=== PATIENT | male | born 1970 | race Caucasian/White ===

== ENCOUNTER 2017-05-01 14:14 | Emergency (ER) | payer SELFPAY ==
[~2017-05-01] VITALS: Ht 170.2 cm; Wt 104.5 kg
[~2017-05-01 14:14] MED LIST: ULTRAM 50MG TAB50 MG PO; ZOFRAN ODT4 MG PO; ZOFRAN8 MG PO
[2017-05-01 14:22] VITALS: TEMP 98.9
[2017-05-01 16:34] VITALS: BP 110/66; PULSE 58
== END 2017-05-01 16:35 | disposition home or self-care (01) ==
LOC: COL.ER 14:14
DX: R51 Headache (principal)
CPT/HCPCS: J1200; J1885; J2765; J7030

== ENCOUNTER 2017-10-31 18:55 | Emergency (ER) | payer BC ==
[~2017-10-31] VITALS: Ht 175.3 cm; Wt 104.5 kg
[2017-10-31 19:01] VITALS: TEMP 98.9
[2017-10-31] MEDS ORDERED: SIMPONI50 MG/0.5 SQ (19:08)
[2017-10-31] MEDS ORDERED: BENADRYL25 M2 PO (19:08)
[2017-10-31] MEDS ORDERED: PREDNISONE 5MG5 MG PO (19:09)
[2017-10-31] MEDS ORDERED: ULTRAM 50MG TAB50 MG PO (19:09)
[2017-10-31 19:37] LABS: BASO % 0.3 % (0.0-2.0); EOS % 0.3 % (0-4.0); GRAN # 8.2 (1.4-6.5); GRAN % 78.3 % (42.2-75.2); HEMATOCRIT 46.3 % (42.0-52.0); HEMOGLOBIN 16.1 g/dl (13.5-18.0); LYMPH # 1.5 (1.2-3.4); LYMPH % 14.7 % (20.0-51.0); MEAN CELL VOLUME 91 fl (80.0-100.0); MEAN CORPUSCULAR HEMOGLOBIN 32 pg (27.0-31.0); MEAN CORPUSCULAR HGB CONC 35 g/dl (33.0-37.0); MEAN PLATELET VOLUME 9.7 fl (7.4-10.4); MONO # 0.6 (0.1-0.6); MONO % 5.9 % (1.7-9.3); PLATELET COUNT 222 K/mm3 (130-400); RED BLOOD COUNT 5.11 M/mm3 (4.20-5.60); REDCELL DISTRIBUTION WIDTH-CV 13.4 % (11.5-14.5)
[2017-10-31 19:48] LABS: ALBUMIN 4.8 gm/dL (3.5-5.0); BILIRUBIN,TOTAL 0.8 mg/dL (0.0-1.0); C-REACTIVE PROTEIN 0.6 mg/dL (0.0-0.9); CALCIUM 9.7 mg/dL (8.4-10.2); CREATININE, serum 0.89 mg/dL (0.66-1.25); POTASSIUM 3.2 mmol/L (3.4-5.0); TOTAL PROTEIN 7.8 gm/dL (6.4-8.2)
[2017-10-31 19:59] LABS: ERYTHROCYTE SEDIMENTATION RATE 1 mm/hr (0-15)
[2017-10-31 20:59] LABS: COLLECTION METHOD CLEAN CATCH
[2017-10-31 21:05] LABS: MUCOUS Present /lpf; PH 5 (5-8); SQUAMOUS EPITHELIAL None Seen /hpf; URINE APPEARANCE Hazy; URINE BACTERIA Rare /hpf; URINE BILIRUBIN Negative (NEGATIVE); URINE BLOOD Negative (NEGATIVE); URINE COLOR Yellow; URINE GLUCOSE Negative (NEGATIVE); URINE KETONE Negative (NEGATIVE); URINE LEUKOCYTE ESTERASE Negative (NEGATIVE); URINE NITRATE Negative (NEGATIVE); URINE PROTEIN(semi-quant) Negative (NEGATIVE); URINE RBC 0-2 /hpf; URINE UROBILINOGEN Negative (NEGATIVE)
[2017-10-31 21:13] VITALS: BP 131/81; PULSE 72
== END 2017-10-31 21:31 | disposition home or self-care (01) ==
LOC: COL.ER 18:55
PROVIDERS: Emergency Medicine
DX: G43.909 Migraine, unspecified, not intractable, without status migrainosus (principal); M06.9 Rheumatoid arthritis, unspecified
CPT/HCPCS: J1200; J1885; J2550; J7030

== ENCOUNTER 2019-06-09 03:48 | Emergency (ER) | payer BC ==
[~2019-06-09] VITALS: Ht 175.3 cm; Wt 102.3 kg
[~2019-06-09 03:48] MED LIST changes: +BENADRYL25 M2 PO; +PREDNISONE 5MG5 MG PO; +SIMPONI50 MG/0.5 SQ
[2019-06-09 03:49] VITALS: TEMP 96.9
[2019-06-09] MEDS ORDERED: MELATONIN1 MG (03:53)
[2019-06-09 04:11] LABS: BASO % 0.3 % (0.0-2.0); EOS # 0.2 (0.0-0.7); EOS % 2.3 % (0-4.0); GRAN # 5.8 (1.4-6.5); GRAN % 63.3 % (42.2-75.2); HEMATOCRIT 46.9 % (42.0-52.0); HEMOGLOBIN 15.6 g/dl (13.5-18.0); LYMPH # 2.2 (1.2-3.4); LYMPH % 24.1 % (20.0-51.0); MEAN CELL VOLUME 93 fl (80.0-100.0); MEAN CORPUSCULAR HEMOGLOBIN 31 pg (27.0-31.0); MEAN CORPUSCULAR HGB CONC 33 g/dl (33.0-37.0); MEAN PLATELET VOLUME 9.5 fl (7.4-10.4); MONO # 0.9 (0.1-0.6); MONO % 9.6 % (1.7-9.3); PLATELET COUNT 237 K/mm3 (130-400); RED BLOOD COUNT 5.04 M/mm3 (4.20-5.60); REDCELL DISTRIBUTION WIDTH-CV 13.4 % (11.5-14.5)
[2019-06-09 04:15] LABS: PROTHROMBIN TIME 11.5 SECONDS (9.7-12.8)
[2019-06-09 04:18] LABS: ALANINE AMINOTRANSFERASE 59 U/L (21-72); ALBUMIN 4.4 gm/dL (3.5-5.0); ALKALINE PHOSPHATASE 82 U/L (50-136); ANION GAP 9 mmol/L (7-16); AST,SGOT 44 U/L (15-37); BILIRUBIN,TOTAL 0.8 mg/dL (0.0-1.0); BLOOD UREA NITROGEN 13 mg/dL (9-20); CALCIUM 9.1 mg/dL (8.4-10.2); CARBON DIOXIDE 28 mmol/L (22-30); CHLORIDE 104 mmol/L (98-107); CREATININE, serum 0.95 (0.66-1.25); GLUCOSE 123 mg/dL (74-106); SODIUM 141 mmol/L (137-145); TOTAL PROTEIN 7.3 gm/dL (6.4-8.2)
[2019-06-09 04:31] LABS: TROPONIN-I < 0.012 ng/mL (0.000-0.035)
[2019-06-09] MEDS ORDERED: ATIVAN 1MG T1 MG/TAB PO (06:36)
[2019-06-09 07:15] VITALS: BP 111/74; PULSE 58
== END 2019-06-09 07:15 | disposition home or self-care (01) ==
LOC: COL.ER 03:48
PROVIDERS: Emergency Medicine
DX: R55 Syncope and collapse (principal); F41.9 Anxiety disorder, unspecified; R42 Dizziness and giddiness
CPT/HCPCS: J2405; J7030

== ENCOUNTER 2019-09-24 16:13 | Emergency (ER) | payer BC ==
[~2019-09-24] VITALS: Ht 177.8 cm; Wt 104.5 kg
[~2019-09-24 16:13] MED LIST changes: +ATIVAN 1MG T1 MG/TAB PO; +MELATONIN1 MG
[2019-09-24 16:42] LABS: COLLECTION METHOD CLEAN CATCH
[2019-09-24 16:46] LABS: BASO % 0.3 % (0.0-2.0); GRAN # 8.3 (1.4-6.5); GRAN % 80.4 % (42.2-75.2); HEMATOCRIT 47.5 % (42.0-52.0); HEMOGLOBIN 16.2 g/dl (13.5-18.0); LYMPH # 0.8 (1.2-3.4); LYMPH % 7.8 % (20.0-51.0); MEAN CELL VOLUME 94 fl (80.0-100.0); MEAN CORPUSCULAR HEMOGLOBIN 32 pg (27.0-31.0); MEAN CORPUSCULAR HGB CONC 34 g/dl (33.0-37.0); MEAN PLATELET VOLUME 9.7 fl (7.4-10.4); MONO # 1.2 (0.1-0.6); MONO % 11.1 % (1.7-9.3); PLATELET COUNT 248 K/mm3 (130-400); RED BLOOD COUNT 5.08 M/mm3 (4.20-5.60); REDCELL DISTRIBUTION WIDTH-CV 13.5 % (11.5-14.5)
[2019-09-24 16:49] LABS: PH 7 (5-8); SQUAMOUS EPITHELIAL None Seen /hpf; URINE APPEARANCE Clear; URINE BACTERIA None Seen /hpf; URINE BILIRUBIN Negative (NEGATIVE); URINE BLOOD 1+ (NEGATIVE); URINE COLOR Straw; URINE GLUCOSE Negative (NEGATIVE); URINE KETONE Negative (NEGATIVE); URINE LEUKOCYTE ESTERASE Negative (NEGATIVE); URINE NITRATE Negative (NEGATIVE); URINE PROTEIN(semi-quant) Negative (NEGATIVE); URINE RBC None Seen /hpf; URINE UROBILINOGEN Negative (NEGATIVE)
[2019-09-24 17:00] LABS: ALBUMIN 5.3 gm/dL (3.5-5.0); BILIRUBIN,TOTAL 1.1 mg/dL (0.0-1.0); CALCIUM 10.2 mg/dL (8.4-10.2); CREATININE, serum 0.93 (0.66-1.25); POTASSIUM 3.7 mmol/L (3.4-5.0); TOTAL PROTEIN 8.7 gm/dL (6.4-8.2)
[2019-09-24] MEDS ORDERED: PHENERGAN 25 TA25 MG PO (20:53)
[2019-09-24 21:15] VITALS: BP 155/118; PULSE 98; TEMP 102.1
== END 2019-09-24 21:54 | disposition home or self-care (01) ==
LOC: COL.ER 16:13
PROVIDERS: Emergency Medicine
DX: R50.9 Fever, unspecified (principal); R30.0 Dysuria; D84.9 Immunodeficiency, unspecified; M06.9 Rheumatoid arthritis, unspecified
CPT/HCPCS: J0696; J7030; Q9967

== ENCOUNTER 2019-09-26 23:09 | Inpatient (IN) | payer BC ==
[~2019-09-26] VITALS: Ht 177.8 cm; Wt 104.5 kg
[~2019-09-26 23:09] MED LIST changes: +PHENERGAN 25 TA25 MG PO
[2019-09-26 23:44] LABS: BASO % 0.2 % (0.0-2.0); GRAN # 4.8 (1.4-6.5); HEMATOCRIT 43.9 % (42.0-52.0); HEMOGLOBIN 15.2 g/dl (13.5-18.0); LYMPH # 0.8 (1.2-3.4); LYMPH % 12.2 % (20.0-51.0); MEAN CELL VOLUME 91 fl (80.0-100.0); MEAN CORPUSCULAR HEMOGLOBIN 32 pg (27.0-31.0); MEAN CORPUSCULAR HGB CONC 35 g/dl (33.0-37.0); MEAN PLATELET VOLUME 10.1 fl (7.4-10.4); MONO # 0.7 (0.1-0.6); MONO % 11.1 % (1.7-9.3); PLATELET COUNT 192 K/mm3 (130-400); RED BLOOD COUNT 4.82 M/mm3 (4.20-5.60); REDCELL DISTRIBUTION WIDTH-CV 13.5 % (11.5-14.5)
[2019-09-26 23:52] LABS: ALBUMIN 4.8 gm/dL (3.5-5.0); C-REACTIVE PROTEIN 3.1 mg/dL (0.0-0.9); CALCIUM 9.9 mg/dL (8.4-10.2); CREATININE, serum 0.97 (0.66-1.25); POTASSIUM 3.7 mmol/L (3.4-5.0); TOTAL PROTEIN 8.2 gm/dL (6.4-8.2)
[2019-09-27] VITALS (9 sets, daily range): BP systolic 98–130; BP diastolic 62–70; PULSE 53–82; TEMP 98.2–101.1
[2019-09-27 00:14] LABS: COLLECTION METHOD CLEAN CATCH
[2019-09-27 00:20] LABS: PH 6 (5-8); SQUAMOUS EPITHELIAL None Seen /hpf; URINE APPEARANCE Clear; URINE BACTERIA Rare /hpf; URINE BILIRUBIN Negative (NEGATIVE); URINE BLOOD Negative (NEGATIVE); URINE COLOR Yellow; URINE GLUCOSE Negative (NEGATIVE); URINE KETONE Negative (NEGATIVE); URINE LEUKOCYTE ESTERASE Negative (NEGATIVE); URINE NITRATE Negative (NEGATIVE); URINE PROTEIN(semi-quant) Negative (NEGATIVE); URINE RBC 0-2 /hpf; URINE UROBILINOGEN Negative (NEGATIVE)
[2019-09-27 01:16] LABS: CLOSTRIDIUM DIFF A/B NEG; CLOSTRIDIUM DIFF A/B INTERP No C.diff present
--- NOTE | 2019-09-27 02:15 | NUR ---
Received patient from ER via stretcher. Patient is alert and oriented. He is independent. With IV at right AC. Metronidazone currently infusing. Patient states he feels some bloatedness but it was tolerable. Med rec and assessment done. Lungs are clear. Will inform Dr. Levy about patient's admission.
[2019-09-27] MEDS ORDERED: PREDNISONE 5MG5 MG PO (02:32)
[2019-09-27] MEDS ORDERED: CIPRO 500MG TA500 MG PO (02:33)
[2019-09-27] MEDS ORDERED: RINVOQ ER15 MG PO (02:35)
--- NOTE | 2019-09-27 02:54 | NUR ---
Called Dr. Levy that patient is already admitted. He ordered for NPO and fluids. Swabbed patient for covid.
--- NOTE | 2019-09-27 06:13 | NUR ---
Patient had an uneventful night. He is afebrile. Maintained on NPO. He didn't have any diarrhea since he came up in the room. Will endorse to day shift nurse.
[2019-09-27 10:25] LABS: BASO % 0.4 % (0.0-2.0); GRAN # 2.8 (1.4-6.5); GRAN % 59.8 % (42.2-75.2); HEMATOCRIT 44.6 % (42.0-52.0); HEMOGLOBIN 15.6 g/dl (13.5-18.0); LYMPH # 1.2 (1.2-3.4); LYMPH % 26.1 % (20.0-51.0); MEAN CELL VOLUME 92 fl (80.0-100.0); MEAN CORPUSCULAR HEMOGLOBIN 32 pg (27.0-31.0); MEAN CORPUSCULAR HGB CONC 35 g/dl (33.0-37.0); MEAN PLATELET VOLUME 10.1 fl (7.4-10.4); MONO # 0.6 (0.1-0.6); MONO % 12.4 % (1.7-9.3); PLATELET COUNT 150 K/mm3 (130-400); RED BLOOD COUNT 4.84 M/mm3 (4.20-5.60); REDCELL DISTRIBUTION WIDTH-CV 13.7 % (11.5-14.5)
[2019-09-27 10:30] LABS: CALCIUM 9.3 mg/dL (8.4-10.2); CREATININE, serum 0.88 (0.66-1.25); POTASSIUM 4.4 mmol/L (3.4-5.0)
--- NOTE | 2019-09-27 11:20 | NUR ---
Patient is alert and oriented. complained of abdominal pain. No diarrhea since yesterday at 1am.
--- NOTE | 2019-09-27 11:56 | NUR ---
patient covid19 result came back negative. patient moved from room 4 to 8.
--- NOTE | 2019-09-27 13:23 | NUR ---
SHREE met with the patient to complete initial intake. The patient lives in [place] with his , Melba and their adult son. The patient denies DME use and is independent with ADLs. The patient's PCP is Dr. Cullen and patient receives medications from [facility] with no difficulties. The patient does not have advanced directives in the EMR but was interested in a DPOA-HC form. Form provided. The patient plans to return home at discharge. There are no additional needs at this time.
--- NOTE | 2019-09-27 19:30 | NUR ---
Received report from [facility]. Seen patient sitting on the bedside. He just finished eating his dinner. He asked to check his temperature again and it was 98.4 Denies any pain. Tried calling Dr. Ahmadi twice but no answer. Left a message in the voicemail.
--- NOTE | 2019-09-27 21:10 | NUR ---
Patient states tat few minutes ago he was able to have a bowel movement and it's already soft and formed. Patient is afebrile. Denies pain.
[2019-09-28] VITALS (7 sets, daily range): BP systolic 113–128; BP diastolic 63–89; PULSE 56–86; TEMP 98.7–100.4
--- NOTE | 2019-09-28 04:20 | NUR ---
Patient states he feels like he has a fever. Temp was checked and it was 99.3F. He verbalizes that he has left ear pain. He said that he already felt the same pain before and he would just go to the doctor and he will be given ear drops. He states it's just a mild pain with pain score of 1/10. No other associated symptoms.
--- NOTE | 2019-09-28 06:30 | NUR ---
Patient had one episode of low grade fever. Tylenol was given for that. Latest temp is 99.6F. Will endorse to day shift nurse.
[2019-09-28 07:03] LABS: BASO % 0.2 % (0.0-2.0); GRAN # 2.8 (1.4-6.5); GRAN % 67.6 % (42.2-75.2); HEMATOCRIT 40.9 % (42.0-52.0); HEMOGLOBIN 13.9 g/dl (13.5-18.0); LYMPH # 0.9 (1.2-3.4); LYMPH % 21.2 % (20.0-51.0); MEAN CELL VOLUME 95 fl (80.0-100.0); MEAN CORPUSCULAR HEMOGLOBIN 32 pg (27.0-31.0); MEAN CORPUSCULAR HGB CONC 34 g/dl (33.0-37.0); MEAN PLATELET VOLUME 10.6 fl (7.4-10.4); MONO # 0.4 (0.1-0.6); MONO % 10.5 % (1.7-9.3); PLATELET COUNT 141 K/mm3 (130-400); RED BLOOD COUNT 4.33 M/mm3 (4.20-5.60); REDCELL DISTRIBUTION WIDTH-CV 13.5 % (11.5-14.5)
[2019-09-28 07:06] LABS: ALBUMIN 4.1 gm/dL (3.5-5.0); BILIRUBIN,TOTAL 0.9 mg/dL (0.0-1.0); CALCIUM 8.6 mg/dL (8.4-10.2); CREATININE, serum 0.84 (0.66-1.25); POTASSIUM 3.9 mmol/L (3.4-5.0); TOTAL PROTEIN 7.2 gm/dL (6.4-8.2)
--- NOTE | 2019-09-28 09:33 | NUR ---
Pt napping upon entry, easily awakened, no C/O pain at this time, shift assessments complete, left Pt call light in reach, bed in lowest position.
--- NOTE | 2019-09-28 18:26 | NUR ---
Pt resting in the room, no C/O pain throughout the day, VS have remained stable.
--- NOTE | 2019-09-28 20:00 | NUR ---
At time of assessment, patient is alert and oriented. He states he has not had diarrhea today, just soft stool. He does complain of having an upset and rumbly stomach at this time. Heart sounds are normal/regular, lungs are clear, no edema or pain. Will contiue to monitor.
[2019-09-29] VITALS (8 sets, daily range): BP systolic 112–133; BP diastolic 54–76; PULSE 50–65; TEMP 97.6–99
--- NOTE | 2019-09-29 06:13 | NUR ---
Patient has had a restful night with no complaints. Max temp tonight was 99.8. Will continue to monitor.
[2019-09-29 06:50] LABS: HEMOGLOBIN 13.6 g/dl (13.5-18.0); MEAN CELL VOLUME 94 fl (80.0-100.0); MEAN CORPUSCULAR HEMOGLOBIN 32 pg (27.0-31.0); MEAN CORPUSCULAR HGB CONC 34 g/dl (33.0-37.0); MEAN PLATELET VOLUME 10.1 fl (7.4-10.4); PLATELET COUNT 151 K/mm3 (130-400); RED BLOOD COUNT 4.27 M/mm3 (4.20-5.60); REDCELL DISTRIBUTION WIDTH-CV 13.6 % (11.5-14.5)
[2019-09-29 07:03] LABS: BILIRUBIN,TOTAL 0.6 mg/dL (0.0-1.0); CALCIUM 8.7 mg/dL (8.4-10.2); CREATININE, serum 0.85 (0.66-1.25); POTASSIUM 3.7 mmol/L (3.4-5.0)
[2019-09-29 07:32] LABS: BAND 20 % (0-10); LYMPHOCYTE 33 % (20.0-51.0); NEUTROPHILS 33 % (42.0-75.2)
[2019-09-29 07:33] LABS: PLATELET ESTIMATE NORMAL (NORMAL)
--- NOTE | 2019-09-29 09:16 | NUR ---
Pt awake and alert upon entry, sitting at window no C/O pain at this time, shift assessments complete, left Pt call light in reach.
--- NOTE | 2019-09-29 15:47 | NUR ---
SW met with the patient to revisit the discharge plan. The patient has not concerns or question about going home. There are no additional needs at this time.
--- NOTE | 2019-09-29 18:21 | NUR ---
Pt has been resting in the room today, ambulatory and independent. Pt has had no C/O pain today. VS have remained stable.
--- NOTE | 2019-09-29 19:30 | NUR ---
Received report from Nick. Seen patient awake, lying in bed. Denies any pain. Afebrile. He states he feels better now and no episodes of diarrhea. With INT on right AC. Patient verbalizes he might go home tomorrow. Will continue to monitor temperature.
[2019-09-30 04:10] VITALS: BP 109/67; PULSE 53; TEMP 98.4
--- NOTE | 2019-09-30 06:09 | NUR ---
Patient had an uneventful night. He is afebrile. Denies any pain. Will endorse to day shift nurse.
[2019-09-30 07:36] LABS: HEMATOCRIT 39.3 % (42.0-52.0); HEMOGLOBIN 13.2 g/dl (13.5-18.0); MEAN CELL VOLUME 94 fl (80.0-100.0); MEAN CORPUSCULAR HEMOGLOBIN 32 pg (27.0-31.0); MEAN CORPUSCULAR HGB CONC 34 g/dl (33.0-37.0); MEAN PLATELET VOLUME 10.1 fl (7.4-10.4); PLATELET COUNT 156 K/mm3 (130-400); RED BLOOD COUNT 4.17 M/mm3 (4.20-5.60); REDCELL DISTRIBUTION WIDTH-CV 13.3 % (11.5-14.5)
[2019-09-30 08:00] LABS: ALBUMIN 3.8 gm/dL (3.5-5.0); BILIRUBIN,TOTAL 0.7 mg/dL (0.0-1.0); CALCIUM 8.9 mg/dL (8.4-10.2); CREATININE, serum 0.76 (0.66-1.25); TOTAL PROTEIN 6.7 gm/dL (6.4-8.2)
[2019-09-30 08:45] VITALS: BP 113/74; PULSE 62; TEMP 98.1
[2019-09-30 09:11] LABS: BAND 14 % (0-10); EOSINOPHIL 1 % (0-4); LYMPHOCYTE 36 % (20.0-51.0); NEUTROPHILS 42 % (42.0-75.2)
[2019-09-30 09:12] LABS: PLATELET ESTIMATE NORMAL (NORMAL)
--- NOTE | 2019-09-30 09:33 | NUR ---
Pt awake and alert upon entry, sitting at window bench, no C/O pain at this time, shift assessments complete, left Pt call light in reach
--- NOTE | 2019-09-30 12:45 | NUR ---
Pt discharged to home, discussed discharge packet with Pt, anwered all questions. Escorted Pt to entrance, Pt left with spouse via private transportation.
== END 2019-09-30 12:45 | disposition home or self-care (01) | DRG 872 ==
LOC: COL.ER 23:09 → MEDICAL 09-27 00:30 → PEDS 09-27 01:22 → MEDICAL 09-27 10:56
PROVIDERS: Physician Assistant; ADMIT Student in an Organized Health Care Education/Training Program
DX: A41.9 Sepsis, unspecified organism (principal); E87.1 Hypo-osmolality and hyponatremia; K52.1 Toxic gastroenteritis and colitis; M06.9 Rheumatoid arthritis, unspecified; J45.909 Unspecified asthma, uncomplicated; T36.95XA Adverse effect of unspecified systemic antibiotic, initial encounter; Z20.828 Contact with and (suspected) exposure to other viral communicable diseases
CPT/HCPCS: OP; 99232-AI; 99233-AI; 99239; J0696; J1650; J2405; J7030; J7512; Q9967

== ENCOUNTER → 2019-10-10 | Outpatient (CLI) | payer BC ==
[~2019-10-10] MED LIST changes: +CIPRO 500MG TA500 MG PO; +RINVOQ ER15 MG PO
== END ==
LOC: COL.RAD 07:58
DX: K80.20 Calculus of gallbladder without cholecystitis without obstruction (principal); K76.0 Fatty (change of) liver, not elsewhere classified

== ENCOUNTER → 2020-05-13 | Outpatient (CLI) | payer BC | LOC: COL.RAD 08:08 | DX: K76.0 Fatty (change of) liver, not elsewhere classified (principal) ==

== ENCOUNTER 2020-06-21 07:03 | Day surgery (SDC) | payer BC ==
[~2020-06-21] VITALS: Ht 177.8 cm; Wt 103.6 kg
[2020-06-21 07:46] VITALS: BP 140/90; PULSE 84; TEMP 97.9
[2020-06-21] MEDS ORDERED: MELATONIN5 M1 PO (07:54)
[2020-06-21] MEDS ORDERED: ORENCIA CL125 MG/1 M SQ (07:54)
[2020-06-21] MEDS ORDERED: VITAMIND3 5000 PO (07:55)
[2020-06-21] MEDS ORDERED: NATURAL MAGNES200 MG PO (07:56)
[2020-06-21] MEDS ORDERED: PHARMASSURE ZIN50 MG PO (07:56)
[2020-06-21] MEDS ORDERED: PREDNISONE 5MG5 MG PO (07:57)
[2020-06-21 09:00] VITALS: BP 121/84; PULSE 73; TEMP 98.6
--- NOTE | 2020-06-21 09:00 | NUR ---
Patient arrives back to [facility] alert, denies pain or nausea. Patient ambulated from cart to chair with standby assist and without any complications. Patient monitor applied, vitals stable.
--- NOTE | 2020-06-21 09:10 | NUR ---
Patient given coffee, juice and muffin at this time.
[2020-06-21 09:15] VITALS: BP 137/96; PULSE 81
[2020-06-21 09:30] VITALS: BP 113/81; PULSE 73
--- NOTE | 2020-06-21 09:30 | NUR ---
Patient tolerated food and drink without any nausea. Vitals stable.
--- NOTE | 2020-06-21 09:50 | NUR ---
Dismissal instructions gone over with patient. Patient voices understanding and all questions answered.
--- NOTE | 2020-06-21 10:00 | NUR ---
Patient discharged to private vehicle at patient enterance via wheelchair. Patient leaves thanking staff for services.
[2020-07-03] MEDS ORDERED: ULTRAM 50MG TAB50 MG PO (13:12)
[2020-07-03] MEDS ORDERED: TYLENOL 8 HR PO (13:13)
[2020-07-03] MEDS ORDERED: VIT PO (13:17)
[2020-07-05] MEDS ORDERED: B-121000 MCG PO (06:46)
== END 2020-06-21 10:00 | disposition home or self-care (01) ==
LOC: SDCO 07:03
DX: Z12.11 Encounter for screening for malignant neoplasm of colon (principal); K64.0 First degree hemorrhoids; K57.30 Diverticulosis of large intestine without perforation or abscess without bleeding; K21.9 Gastro-esophageal reflux disease without esophagitis; K59.00 Constipation, unspecified; M19.90 Unspecified osteoarthritis, unspecified site; J45.909 Unspecified asthma, uncomplicated; K76.0 Fatty (change of) liver, not elsewhere classified; M06.9 Rheumatoid arthritis, unspecified; Z79.899 Other long term (current) drug therapy; Z20.822 Contact with and (suspected) exposure to COVID-19
CPT/HCPCS: J2704; J3010

== ENCOUNTER → 2020-07-05 | Outpatient (CLI) | payer BC ==
[~2020-07-05] VITALS: Ht 177.8 cm; Wt 104.0 kg
[2020-07-05] VITALS (8 sets, daily range): BP systolic 134–162; BP diastolic 87–100; PULSE 48–59
[~2020-07-05] MED LIST changes: +B-121000 MCG PO; +MELATONIN5 M1 PO; +NATURAL MAGNES200 MG PO; +ORENCIA CL125 MG/1 M SQ; +PHARMASSURE ZIN50 MG PO; +TYLENOL 8 HR PO; +VIT PO; +VITAMIND3 5000 PO
--- NOTE | 2020-07-05 07:55 | NUR ---
Dr De La Cruz here, time out done and procedure started
--- NOTE | 2020-07-05 08:05 | NUR ---
specimans obtained from liver put in formulin, bandaid over site
== END ==
LOC: COL.RAD 05:48
PROVIDERS: Internal Medicine Gastroenterology
DX: Z98.890 Other specified postprocedural states (principal); R74.8 Abnormal levels of other serum enzymes
CPT/HCPCS: 32109

== ENCOUNTER 2020-10-31 14:47 | Emergency (ER) | payer BC ==
[~2020-10-31] VITALS: Ht 177.8 cm; Wt 102.3 kg
[2020-10-31 15:34] VITALS: TEMP 99
[2020-10-31 18:21] LABS: ALANINE AMINOTRANSFERASE 112 U/L (4-49); ALBUMIN 4.7 gm/dL (3.5-5.0); ALKALINE PHOSPHATASE 106 U/L (50-136); ANION GAP 7 mmol/L (7-16); AST,SGOT 111 U/L (15-37); BILIRUBIN,TOTAL 0.5 mg/dL (0.0-1.0); BLOOD UREA NITROGEN 8 mg/dL (9-20); CALCIUM 9.6 mg/dL (8.4-10.2); CARBON DIOXIDE 25 mmol/L (22-30); CHLORIDE 108 mmol/L (98-107); GLUCOSE 96 mg/dL (74-106); SODIUM 140 mmol/L (137-145); TOTAL PROTEIN 7.7 gm/dL (6.4-8.2)
[2020-10-31 18:23] LABS: BASO % 0.2 % (0.0-2.0); EOS % 0.2 % (0-4.0); GRAN # 4.2 (1.4-6.5); GRAN % 70.7 % (42.2-75.2); HEMATOCRIT 48.3 % (42.0-52.0); HEMOGLOBIN 16.4 g/dl (13.5-18.0); LYMPH % 16.9 % (20.0-51.0); MEAN CELL VOLUME 88 fl (80.0-100.0); MEAN CORPUSCULAR HEMOGLOBIN 30 pg (27.0-31.0); MEAN CORPUSCULAR HGB CONC 34 g/dl (33.0-37.0); MEAN PLATELET VOLUME 9.8 fl (7.4-10.4); MONO # 0.7 (0.1-0.6); MONO % 11.7 % (1.7-9.3); PLATELET COUNT 213 K/mm3 (130-400); RED BLOOD COUNT 5.47 M/mm3 (4.20-5.60); REDCELL DISTRIBUTION WIDTH-CV 13.7 % (11.5-14.5)
[2020-10-31 18:33] LABS: TROPONIN-I < 0.012 ng/mL (0.000-0.035)
[2020-10-31 21:00] VITALS: BP 135/88; PULSE 89
== END 2020-10-31 21:00 | disposition home or self-care (01) ==
LOC: COL.ER 14:47
PROVIDERS: Physician Assistant
DX: U07.1 COVID-19 (principal); M19.91 Primary osteoarthritis, unspecified site; Z79.52 Long term (current) use of systemic steroids
CPT/HCPCS: J7030

== ENCOUNTER → 2021-03-18 | Outpatient (CLI) | payer BC | LOC: COL.RAD 07:46 | DX: K76.0 Fatty (change of) liver, not elsewhere classified (principal); K80.20 Calculus of gallbladder without cholecystitis without obstruction ==

== ENCOUNTER 2022-06-15 07:47 | Emergency (ER) | payer BC ==
[~2022-06-15] VITALS: Ht 175.3 cm; Wt 100.0 kg
[2022-06-15 08:07] LABS: BASO % 0.7 % (0.0-2.0); EOS # 0.2 K/mm3 (0.0-0.7); GRAN # 3.5 K/mm3 (1.4-6.5); HEMATOCRIT 47.2 % (42.0-52.0); HEMOGLOBIN 16.5 g/dl (13.5-18.0); LYMPH # 1.8 K/mm3 (1.2-3.4); LYMPH % 29.7 % (20.0-51.0); MEAN CELL VOLUME 90 fl (80.0-100.0); MEAN CORPUSCULAR HEMOGLOBIN 31 pg (27-31); MEAN CORPUSCULAR HGB CONC 35 g/dl (33.0-37.0); MEAN PLATELET VOLUME 9.8 fl (7.4-10.4); MONO # 0.4 K/mm3 (0.1-0.6); MONO % 7.4 % (1.7-9.3); PLATELET COUNT 240 K/mm3 (130-400); RED BLOOD COUNT 5.27 M/mm3 (4.20-5.60); REDCELL DISTRIBUTION WIDTH-CV 13.3 % (11.5-14.5)
[2022-06-15 08:28] LABS: ALANINE AMINOTRANSFERASE 46 U/L (0-55); ALBUMIN 4.2 gm/dL (3.5-5.0); ALKALINE PHOSPHATASE 96 U/L (40-150); ANION GAP 10 mmol/L (7-16); AST,SGOT 38 U/L (5-34); BILIRUBIN,TOTAL 0.6 mg/dL (0.2-1.2); BLOOD UREA NITROGEN 7 mg/dL (8-26); C-REACTIVE PROTEIN 0.13 mg/dL (0.00-0.50); CALCIUM 10.1 mg/dL (8.4-10.2); CARBON DIOXIDE 21 mmol/L (22-29); CHLORIDE 108 mmol/L (98-107); CREATINE KINASE 214 U/L (30-200); GLUCOSE 145 mg/dL (70-99); LIPASE 49 U/L (8-78); POTASSIUM 3.7 mmol/L (3.5-4.5); SODIUM 139 mmol/L (136-145); TOTAL PROTEIN 7.6 gm/dL (6.2-8.1)
[2022-06-15 08:35] LABS: TROPONIN-I < 0.010 ng/mL (0.00-0.033)
[2022-06-15] MEDS ORDERED: NAPROSYN500 MG PO (10:18)
[2022-06-15 11:15] VITALS: BP 116/86; PULSE 55; TEMP 98.9
== END 2022-06-15 11:17 | disposition home or self-care (01) ==
LOC: COL.ER 07:47
PROVIDERS: Emergency Medicine
DX: R07.89 Other chest pain (principal); R10.13 Epigastric pain; R10.11 Right upper quadrant pain; M06.9 Rheumatoid arthritis, unspecified; Z79.899 Other long term (current) drug therapy
CPT/HCPCS: C9113; J1885

== ENCOUNTER 2023-04-15 13:10 | Emergency (ER) | payer BC ==
[~2023-04-15] VITALS: Ht 177.8 cm; Wt 90.9 kg
[~2023-04-15 13:10] MED LIST changes: +NAPROSYN500 MG PO
[2023-04-15 13:24] VITALS: PULSE 79; TEMP 98.4
[2023-04-15] MEDS ORDERED: NORCO 325 MG-51 TAB PO (13:53)
[2023-04-15] MEDS ORDERED: AMOXICILLIN 50500 MG PO (13:53)
[2023-04-15 14:11] VITALS: BP 153/55
== END 2023-04-15 14:11 | disposition home or self-care (01) ==
LOC: COL.ER 13:10
DX: K02.9 Dental caries, unspecified (principal); Z87.891 Personal history of nicotine dependence
CPT/HCPCS: J0696

== ENCOUNTER 2023-05-18 17:45 | Emergency (ER) | payer BC ==
[~2023-05-18] VITALS: Ht 177.8 cm; Wt 94.1 kg
[~2023-05-18 17:45] MED LIST changes: +AMOXICILLIN 50500 MG PO; +NORCO 325 MG-51 TAB PO
[2023-05-18 18:00] VITALS: TEMP 98.8
[2023-05-18] MEDS ORDERED: OMNICEF 300MG300 MG PO (18:41)
[2023-05-18] MEDS ORDERED: cefTRIAXone 500 MG,Lidocaine PF 1% 1 ML IM ONE (18:45)
[2023-05-18] MEDS ORDERED: ALPRAZolam 0.5 MG TAB PO ONE (18:45)
[2023-05-18 18:52] VITALS: BP 160/94; PULSE 64
== END 2023-05-18 18:52 | disposition home or self-care (01) ==
LOC: COL.ER 17:45
DX: J01.00 Acute maxillary sinusitis, unspecified (principal)
CPT/HCPCS: J0696

== ENCOUNTER 2023-10-24 07:42 | Emergency (ER) | payer BC ==
[~2023-10-24] VITALS: Ht 175.3 cm; Wt 95.5 kg
[~2023-10-24 07:42] MED LIST changes: +OMNICEF 300MG300 MG PO
[2023-10-24 07:48] VITALS: BP 155/90; TEMP 98.2
[2023-10-24] MEDS ORDERED: AMOXICILLIN 8751 TAB PO (08:09)
[2023-10-24] MEDS ORDERED: CIPRODEX OT (08:09)
[2023-10-24 08:16] VITALS: PULSE 68
== END 2023-10-24 08:16 | disposition home or self-care (01) ==
LOC: COL.ER 07:42
DX: H60.91 Unspecified otitis externa, right ear (principal)

== ENCOUNTER 2024-01-01 23:35 | Emergency (ER) | payer BC ==
[~2024-01-01] VITALS: Ht 175.3 cm; Wt 95.5 kg
[~2024-01-01 23:35] MED LIST changes: +AMOXICILLIN 8751 TAB PO; +CIPRODEX OT
[2024-01-01 23:37] VITALS: TEMP 97
[2024-01-02] MEDS ORDERED: AMOXICILLIN 8751 TAB PO (00:10)
[2024-01-02] MEDS ORDERED: Amoxicillin/Clavulanate K+ 875/125 MG TAB PO ONE (00:15)
[2024-01-02] MEDS ORDERED: Home Amoxicillin/Clavulanate K 875 MG #1 TAB/PACK PO ONE (00:15)
[2024-01-02 00:30] VITALS: BP 146/80; PULSE 91
== END 2024-01-02 00:30 | disposition home or self-care (01) ==
LOC: COL.ER 23:35
DX: K05.20 Aggressive periodontitis, unspecified (principal)

== ENCOUNTER 2024-02-07 18:56 | Emergency (ER) | payer BC ==
[2024-02-07] MEDS ORDERED: Acetaminophen 500 MG TAB PO ONE (21:00)
[2024-02-07] MEDS ORDERED: Ibuprofen 400 MG TAB PO ONE (21:00)
[2024-02-07] MEDS ORDERED: guaiFENesin/Codeine Oral Soln 100-10 MG/5 ML 5 ML UD PO ONE (21:30)
[2024-02-07 22:46] VITALS: BP 135/76; PULSE 84; TEMP 99.9
== END 2024-02-08 01:30 | disposition home or self-care (01) ==
LOC: COL.ER 18:56
DX: J06.9 Acute upper respiratory infection, unspecified (principal)